=== PATIENT | female | born 1970 | race Caucasian/White ===

== ENCOUNTER 2017-01-14 19:23 | Emergency (ER) | payer OTHER ==
[~2017-01-14] VITALS: Ht 162.6 cm; Wt 103.0 kg
[~2017-01-14 19:23] MED LIST: ACET500T98 PO; PREN1TAB49 PO; TYLENOL
[2017-01-14 20:37] VITALS: Ht 162.6 cm; Wt 103.0 kg
[2017-01-14] MEDS ORDERED: IBUPROFEN 600 MG TAB PO ONE (23:30)
[2017-01-14] MEDS ORDERED: predniSONE 20 MG TAB PO ONE (23:30)
[2017-01-15] MEDS ORDERED: FLUT9.9S NASAL (00:08)
[2017-01-15] MEDS ORDERED: MED4DP PO (00:08)
[2017-01-15] MEDS ORDERED: AZIT250T94 PO (00:08)
[2017-01-15] MEDS ORDERED: IBUP-1542 PO (00:08)
[2017-01-15 00:27] VITALS: BP 145/77; PULSE 73; RESP 16; TEMP 98
--- NOTE | 2017-01-26 23:47 | ERD ---
ER Documentation Chief Complaint Chief Complaint colds since last week, feels dizzy; not in distress HPI Vision is a 46-year-old female presenting to the emergency department with complaints of sinus pain intermittently for the past week. She reports nasal congestion. Symptoms are constant and moderate in severity. She denies fevers , chills, or other symptoms currently. ROS All systems reviewed and are negative except as per history of present illness. Medications Home Meds Active Scripts Ibuprofen* (Motrin*) 600 Mg Tab, 600 MG PO Q6, #30 TAB Prov:MANI CHAVEZ PA-C 01/15/17 Fluticasone Propionate (Flonase Allergy Relief) 9.9 Ml [place].susp, 2 SPRAY NASAL DAILY, #1 BOTTLE TO EACH NOSTRIL Prov:MANI CHAVEZ PA-C 01/15/17 Methylprednisolone* (Medrol* DOSE PACK) 4 Mg/Dose-Pack Tab.ds.pk, 4 MG PO . DIRECTED, #1 PACKET Prov:MANI CHAVEZ PA-C 01/15/17 Azithromycin* (Zithromax*) 250 Mg Tablet, 250 MG PO .ZPACK DIRECTED, #6 TAB TAKE 500 MG (2 TABS) THE FIRST DAY THEN 250 MG (1 TAB) DAYS 2-5 Prov:MANI CHAVEZ PA-C 01/15/17 Reported Medications Vits W-Ca,Fe,Fa(<1MG) () 1 Tab Tablet, 1 TAB PO DAILY 06/29/11 Acetaminophen (Tylenol) 500 Mg Tab, 500 MG PO Y 06/29/11 [Tylenol] No Conflict Check 05/30/11 Allergies Allergies: Coded Allergies: No Known Allergy (Unverified , 08/13/14) PMhx/Soc Medical and Surgical Hx: pt denies Medical Hx History of Surgery: Yes (c section) Anesthesia Reaction: No Hx Neurological Disorder: No Hx Respiratory Disorders: No Hx Cardiac Disorders: No Hx Psychiatric Problems: No Hx Miscellaneous Medical Probl: No Hx Alcohol Use: Yes (occasionally) Hx Substance Use: No Hx Tobacco Use: No Smoking Status: Never smoker Physical Exam Physical Exam Const: Nontoxic, well-appearing female in no acute distress. Head: Atraumatic Eyes: Normal Conjunctiva ENT: Normal External Ears, Nose and Mouth. His are congested. There is tenderness palpation of the frontal sinuses bilaterally. Neck: Full range of motion..~ No meningismus. Resp: Clear to auscultation bilaterally Cardio: Regular rate and rhythm, no murmurs Skin: No petechiae or rashes Back: No midline or flank tenderness Ext: No cyanosis, or edema Neur: Awake and alert Psych: Normal Mood and Affect Results 24 hrs Current Medications Medications (Trade) Dose Ordered Sig/Marcos Route PRN Reason Start Time Stop Time Status Last Admin Dose Admin Prednisone (Prednisone) 20 mg ONCE ONCE PO 01/14/17 23:30 01/14/17 23:31 DC 01/15/17 00:07 Ibuprofen (Motrin) 600 mg ONCE ONCE PO 01/14/17 23:30 01/14/17 23:31 DC 01/15/17 00:07 Procedures/MDM 46-year-old female presents to the emergency department with complaints of sinus pain. History and physical examination is consistent with sinusitis which is uncomplicated. Low suspicion for sepsis or other emergent conditions. The patient was stable for outpatient management with a prescription for Flonase, ibuprofen, Medrol Dosepak, and azithromycin. She agreed with the discharge plan a diagnosis. She is to follow-up with her primary care physician within 1-2 days. Strict ER return precautions were discussed. Departure Diagnosis: Primary Impression: Sinusitis Sinusitis location: unspecified location Chronicity: acute Recurrence: non -recurrent Qualified Code: J01.90 - Acute non-recurrent sinusitis, unspecified location Condition: Fair Patient Instructions: Sinus Headaches, Sinusitis, Abx Tx Additional Instructions: Follow up with your PCP within the next 1-3 days for a repeat evaluation. If you require a referral to a specialist, your Primary Care Provider may be able to provide this for you. In most patient cases, a referral is not required. If you have further questions regarding this matter, please ask your Primary Care Provider. Return the the emergency department immediately if symptoms worsen or change. If you have any questions regarding medications, ask your pharmacist or us before you leave. If any adverse reactions, occur while taking your medications, discontinue the treatment and return to the emergency department immediately. If any new or worsening symptoms, uncontrolled fevers, or other unexplained symptoms occur, return to the emergency department immediately. Take your medications as directed, and complete the entire course of treatment. MANI CHAVEZ PA-C Jan 26, 2017 23:47
== END 2017-01-15 00:28 | disposition home or self-care (01) ==
LOC: FTE 19:23
DX: J01.90 Acute sinusitis, unspecified (principal)
CPT/HCPCS: J7512; Z7502; Z7610; 99283

== ENCOUNTER 2017-12-06 09:30 | Emergency (ER) | END 2017-12-06 11:58 | disposition home or self-care (01) ==